=== PATIENT | female | born 1965 ===

== ENCOUNTER 2017-11-29 11:05 | Inpatient (IN) ==
--- NOTE | 2017-11-29 11:39 | ED ---
HPI General Chief Complaint: Psychiatric Symptoms Stated Complaint: Psych/OBPD Time Seen by Provider: 11/29/17 17:07 Source: patient and police Mode of arrival: ambulatory Limitations: no limitations History of Present Illness HPI Narrative: 52-year-old white female with a history of PTSD, depression, anxiety homelessness presents emergency department under [place] act by PD. The patient was just seen in the ER earlier this past week for PTSD and anxiety. She was offered a prescription for Vistaril. She states that she is disabled. Her car is disabled in parking lot at [facility]. The patient has been trespassed from [employer]. Patient has contacted police advising them that she has been feeling fused as well as feeling suicidal. She does not have any current plan on self-harm. No homicidal ideation. Patient also complains of pain in both feet from blisters which she has obtained from walking in sandals. She denies any fever chills. No chest pain or shortness of breath. No nausea vomiting. No abdominal pain or urinary symptoms. Symptoms are moderate. No alleviating factors. Exacerbated by her homeless state. Related Data Home Medications Medication Instructions Recorded Confirmed No Known Home Medications 11/29/17 11/29/17 Allergies Allergy/AdvReac Type Severity Reaction Status Date / Time aspirin Allergy Hives Verified 11/25/17 12:46 propoxyphene Allergy Itching Verified 11/25/17 12:46 [From Rosa] Review of Systems ROS Unobtainable All other systems reviewed negative except as stated in HPI PMFSH Medical History Medical History H/O: hysterectomy (Acute) Fibromyalgia (Acute) PTSD (post-traumatic stress disorder) (Acute) Surgical History Surgical History Hx of section (Acute) Social History Social History Substance History: No History of Abuse Smoking Status: Current every day smoker Tobacco Type: Cigarettes How Often Do You Have a Drink Containing Alcohol: Never Recent Travel in USA within the Last 8 Weeks: No Recent Out of Country Travel within the Last 8 Weeks: No Exam Narrative Exam Narrative: GENERAL: Well-nourished, well-developed patient. SKIN: Warm and dry. HEAD: Normocephalic and atraumatic. EYES: No scleral icterus. No injection or drainage. ENT: No nasal drainage noted. Mucous membranes pink. Airway patent. NECK: Supple, trachea midline. Moves head freely without obvious discomfort. CARDIOVASCULAR: Regular rate and rhythm without murmurs, gallops, or rubs. RESPIRATORY: Breath sounds equal bilaterally. No accessory muscle use. GASTROINTESTINAL: Abdomen soft, non-tender, nondistended. EXTREMITIES: No cyanosis or edema. Patient has superficial blisters to the interdigital spaces of the great toe and second toe both feet as well as the plantar surface. No signs of any wound infection. BACK: Nontender without obvious deformity. No CVA tenderness. NEURO: Patient is alert and oriented. no sensorimotor deficits. Nonfocal. Normal speech. PSYCH: No delusions. No auditory or visual hallucinations. Course Initial Documented Vital Signs Temperature 98.8 F 11/29/17 11:18 Pulse Rate 80 11/29/17 11:18 Respiratory Rate 16 11/29/17 11:18 Blood Pressure 115/63 11/29/17 11:18 Pulse Oximetry 97 11/29/17 11:18 Last Documented Vital Signs Temperature 97.9 F 11/30/17 06:00 Pulse Rate 58 L 11/30/17 06:00 Respiratory Rate 16 11/30/17 06:00 Blood Pressure 109/55 L 11/30/17 06:00 Pulse Oximetry 97 11/30/17 06:00 Medical Decision Making MDM Narrative Medical decision making narrative: Routine laboratory tests sent for analysis for medical clearance. Patient has been medically cleared. Differential Diagnosis Differential Diagnosis: MDM: High Differential diagnoses: Schizophrenia, schizoaffective disorder, bipolar, anxiety, depression, adjustment reaction, mood disorder NOS, ODD, depressive disorder NOS, dementia, dementia with agitation, psychosis NOS, substance induced mood disorder, DMDD, Asperger syndrome, infection,electrolyte abnormality, malingering. Mental health screening discussed with the patient. Psychiatric screen ordered. Lab Data Result diagrams: 11/29/17 11:28 11/30/17 08:50 Lab Results 11/29/17 11/29/17 11/29/17 Range/Units 11:28 11:28 12:15 WBC 8.1 (4.0-11.0) th/mm3 RBC 4.61 (4.00-5.30) mil/mm3 Hgb 14.4 (11.6-15.3) gm/dL Hct 42.7 (35.0-46.0) % MCV 92.6 (80.0-100.0) fL MCH 31.3 (27.0-34.0) pg MCHC 33.8 (32.0-36.0) % RDW 13.1 (11.6-17.2) % Plt Count 207 (150-450) th/mm3 MPV 8.2 (7.0-11.0) fL Neut % (Auto) 60.7 (16.0-70.0) % Lymph % (Auto) 30.6 (9.0-44.0) % [place] % (Auto) 7.0 (0.0-8.0) % Eos % (Auto) 1.1 (0.0-4.0) % Baso % (Auto) 0.6 (0.0-2.0) % Neut # (Auto) 4.9 (1.8-7.7) th/mm3 Lymph # (Auto) 2.5 (1.0-4.8) th/mm3 [place] # (Auto) 0.6 (0.0-0.9) th/mm3 Eos # (Auto) 0.1 (0.0-0.4) th/mm3 Baso # (Auto) 0.0 (0.0-0.2) th/mm3 WBC Differential . Differential Comment Auto diff final Sodium 143 (136-145) meq/L Potassium 3.5 (3.5-5.1) meq/L Chloride 109 H (98-107) meq/L Carbon Dioxide 27.9 (21.0-32.0) meq/L Anion Gap 6 (5-15) meq/L BUN 6 L (7-18) mg/dL Creatinine 0.92 (0.50-1.00) mg/dL Estimated GFR 64 L (>89) mL/min Random Glucose 123 H (74-106) mg/dL Hemoglobin A1c (4.3-6.0) % Uric Acid (2.6-6.0) mg/dl Calcium 8.6 (8.5-10.1) mg/dL Total Bilirubin 0.5 (0.2-1.0) mg/dL AST 21 (15-37) U/L ALT 21 (10-53) U/L Alkaline Phosphatase 93 (45-117) U/L Total Protein 6.9 (6.4-8.2) g/dL Albumin 3.6 (3.4-5.0) g/dL Triglycerides (42-150) mg/dL Cholesterol (120-200) mg/dL LDL Cholesterol, Calc (0-99) mg/dL HDL Cholesterol (40.0-60.0) mg/dL Cholesterol/HDL Ratio Ratio TSH 1.600 (0.358-3.740) uIU/mL Urine Opiates Screen Neg (Neg) Ur Barbiturates Screen Neg (Neg) Ur Amphetamines Screen Neg (Neg) U Benzodiazepines Scrn Neg (Neg) Urine Cocaine Screen Neg (Neg) U Cannabinoids Screen Neg (Neg) Serum Alcohol Less than 3 (0-5) mg/dL 11/30/17 11/30/17 11/30/17 Range/Units 08:50 08:50 08:50 WBC (4.0-11.0) th/mm3 RBC (4.00-5.30) mil/mm3 Hgb (11.6-15.3) gm/dL Hct (35.0-46.0) % MCV (80.0-100.0) fL MCH (27.0-34.0) pg MCHC (32.0-36.0) % RDW (11.6-17.2) % Plt Count (150-450) th/mm3 MPV (7.0-11.0) fL Neut % (Auto) (16.0-70.0) % Lymph % (Auto) (9.0-44.0) % [place] % (Auto) (0.0-8.0) % Eos % (Auto) (0.0-4.0) % Baso % (Auto) (0.0-2.0) % Neut # (Auto) (1.8-7.7) th/mm3 Lymph # (Auto) (1.0-4.8) th/mm3 [place] # (Auto) (0.0-0.9) th/mm3 Eos # (Auto) (0.0-0.4) th/mm3 Baso # (Auto) (0.0-0.2) th/mm3 WBC Differential Differential Comment Sodium 143 (136-145) meq/L Potassium 3.7 (3.5-5.1) meq/L Chloride 110 H (98-107) meq/L Carbon Dioxide 27.2 (21.0-32.0) meq/L Anion Gap 6 (5-15) meq/L BUN 8 (7-18) mg/dL Creatinine 0.66 (0.50-1.00) mg/dL Estimated GFR Greater than 89 (>89) mL/min Random Glucose 87 (74-106) mg/dL Hemoglobin A1c 5.2 (4.3-6.0) % Uric Acid 4.2 (2.6-6.0) mg/dl Calcium 8.4 L (8.5-10.1) mg/dL Total Bilirubin (0.2-1.0) mg/dL AST (15-37) U/L ALT (10-53) U/L Alkaline Phosphatase (45-117) U/L Total Protein (6.4-8.2) g/dL Albumin (3.4-5.0) g/dL Triglycerides 81 (42-150) mg/dL Cholesterol 146 (120-200) mg/dL LDL Cholesterol, Calc 87 (0-99) mg/dL HDL Cholesterol 43.2 (40.0-60.0) mg/dL Cholesterol/HDL Ratio 3.37 Ratio TSH (0.358-3.740) uIU/mL Urine Opiates Screen (Neg) Ur Barbiturates Screen (Neg) Ur Amphetamines Screen (Neg) U Benzodiazepines Scrn (Neg) Urine Cocaine Screen (Neg) U Cannabinoids Screen (Neg) Serum Alcohol (0-5) mg/dL Imaging Data Radiologist's impression: Foot X-Ray 11/30/17 00:00 CONCLUSION: Unremarkable study. Venous Doppler Study 11/30/17 00:00 CONCLUSION: 1. The study is negative for bilateral lower extremity deep venous thrombosis. Discharge Plan Discharge Disposition Patient Disposition: Discharge Home Discharge Order Discharge Orders: Discharge Order (Routine); Ordered 11/30/17 Ordered By: Julio Burks Discharge Details Diagnosis: Chronic schizophrenia, Medical clearance for psychiatric admission Physicians Team ED Provider: Geni Jung ED Midlevel Provider: Julio Burks Primary Care Provider: Primary Care Yamilethi,No Attending Provider: Kiran Sifuentes Other Providers: Kiran Sifuentes ; Felix Hooper Discharge Interventions Interventions: ED Discharge Assessment Last Done: 11/29/17 20:55 Vital Signs Last Done: 11/29/17 17:39 Status ED Status: Left Department Discharge Information Discharge Date/Time: 11/29/17 20:58
[2017-11-29 11:53] LABS: Baso % (Auto) 0.6 % (0.0-2.0); Eos # (Auto) 0.1 th/mm3 (0.0-0.4); Eos % (Auto) 1.1 % (0.0-4.0); Hematocrit 42.7 % (35.0-46.0); Hemoglobin 14.4 gm/dL (11.6-15.3); Lymph # (Auto) 2.5 th/mm3 (1.0-4.8); Lymph % (Auto) 30.6 % (9.0-44.0); Mean Corpuscular HGB Conc 33.8 % (32.0-36.0); Mean Corpuscular Hemoglobin 31.3 pg (27.0-34.0); Mean Corpuscular Volume 92.6 fL (80.0-100.0); Mean Platelet Volume 8.2 fL (7.0-11.0); Mono # (Auto) 0.6 th/mm3 (0.0-0.9); Neut # (Auto) 4.9 th/mm3 (1.8-7.7); Neut % (Auto) 60.7 % (16.0-70.0); Platelet Count 207 th/mm3 (150-450); Red Blood Count 4.61 mil/mm3 (4.00-5.30); Red Cell Distribution Width 13.1 % (11.6-17.2); White Blood Count 8.1 th/mm3 (4.0-11.0)
[2017-11-29 12:13] LABS: Alanine Aminotransferase 21 U/L (10-53); Albumin 3.6 g/dL (3.4-5.0); Anion Gap 6 meq/L (5-15); Aspartate Aminotransferase 21 U/L (15-37); Blood Urea Nitrogen 6 mg/dL (7-18); Calcium 8.6 mg/dL (8.5-10.1); Carbon Dioxide 27.9 meq/L (21.0-32.0); Chloride 109 meq/L (98-107); Glomerular Filtration Rate 64 mL/min (>89); Glucose,Random 123 mg/dL (74-106); Potassium 3.5 meq/L (3.5-5.1); Sodium 143 meq/L (136-145)
[2017-11-29 12:23] LABS: Alkaline Phosphatase 93 U/L (45-117); Total Protein 6.9 g/dL (6.4-8.2)
[2017-11-29 13:23] LABS: Amphetamine Screen,Urine Neg (Neg); Barbiturate Screen,Urine Neg (Neg); Cannabinoid Screen,Urine Neg (Neg); Cocaine Screen,Urine Neg (Neg); Opiate Screen,Urine Neg (Neg)
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
[2017-11-29] MEDS ORDERED: Bisacodyl 10 MG Supp RECTAL PRN (18:00)
[2017-11-29] MEDS ORDERED: Aluminum/Magnesium/Simethacone Susp 30 ML UDC PO PRN (18:00)
--- NOTE | 2017-11-30 08:50 | US ---
EXAM DATE: 11/30/2017 8:48 AM EDT AGE/SEX: 52 years / Female INDICATIONS: Bilateral leg swelling. CLINICAL DATA: This is the patient's initial encounter. Patient reports that signs and symptoms have been present for 2 days and indicates a pain score of 5/10. MEDICAL/SURGICAL HISTORY: . Fibromyalgia. PTSD. section. Hysterectomy. COMPARISON: No prior exams available for comparison. TECHNIQUE: Venous ultrasound of both lower extremities was performed from the inguinal ligament to t he proximal calf. Real-time, color Doppler and spectral tracing, compression and augmentation techni ques were used. FINDINGS: Right Leg: Normal compression of the deep venous system from the inguinal region to the proximal joao f. No echogenic clot is seen. Normal response of the venous system to augmentation and respiration. Left Leg: Normal compression of the deep venous system from the inguinal region to the proximal calf . No echogenic clot is seen. Normal response of the venous system to augmentation and respiration. Other: None. CONCLUSION: 1. The study is negative for bilateral lower extremity deep venous thrombosis. Electronically signed by: Taina Oliver MD 11/30/2017 8:49 AM EDT
--- NOTE | 2017-11-30 09:19 | XR ---
EXAM DATE: 11/30/2017 9:07 AM EDT AGE/SEX: 52 years / Female INDICATIONS: Pain on calcaneus and tissue between 1st and 2nd digits from walking with flip flops. CLINICAL DATA: This is the patient's initial encounter. Patient reports that signs and symptoms have been present for 1 week and indicates a pain score of 8/10. MEDICAL/SURGICAL HISTORY: . Fibromyalgia. PTSD. . section. Hysterectomy. COMPARISON: No prior exams available for comparison. FINDINGS: No definite fractures, or dislocations are identified. No definite lytic or sclerotic les ion is seen. The joint spaces are well maintained. There is irregularity of the first distal phalan x chronic in nature. CONCLUSION: Unremarkable study. Electronically signed by: Taina Oliver MD 11/30/2017 9:18 AM EDT
[2017-11-30 10:08] LABS: Anion Gap 6 meq/L (5-15); Blood Urea Nitrogen 8 mg/dL (7-18); Calcium 8.4 mg/dL (8.5-10.1); Carbon Dioxide 27.2 meq/L (21.0-32.0); Chloride 110 meq/L (98-107); Cholesterol 146 mg/dL (120-200); Glomerular Filtration Rate Greater Than 89 mL/min (>89); Glucose,Random 87 mg/dL (74-106); Potassium 3.7 meq/L (3.5-5.1); Sodium 143 meq/L (136-145); Triglycerides 81 mg/dL (42-150)
[2017-11-30 10:10] LABS: Chol/HDL Ratio 3.37 Ratio; HDL Cholesterol 43.2 mg/dL (40.0-60.0); LDL Cholesterol,Calculated 87 mg/dL (0-99)
[2017-11-30 10:29] LABS: Hemoglobin A1c 5.2 % (4.3-6.0)
--- NOTE | 2017-11-30 13:28 | P.HPPSY ---
Provisional Diagnosis Admission Date: November 29, 2017 18:02 [place] I.: Unspecified psychosis, R/O bipolar disorder, manic episode, acute exacerbation [place] II.: Deferred [place] III.: Fibromyalgia Competence Certification of Person's Competence To Provide Express and Informed Consent I have personally examined Regina Edmonds, a person being served at [facility] on, November 30, 2017 1309. Express and informed consent means consent voluntarily given in writing, by a competent person, after sufficient explanation and disclosure of the subject matter involved to enable the person to make a knowing and willful decision without any element of force, fraud, deceit, duress, or other form of constraint or coercion. This person is 18 years of age or older, is not now known to be incompetent to consent to treatment with a guardian advocate, and does not have a health care surrogate or proxy currently making medical treatment decisions. I have found this person to be one of the following: [] Competent to provide express and informed consent, as defined above, for voluntary admission to this facility and is competent to provide express and informed consent for treatment. He/she has the consistent capacity to make well reasoned, willful, and knowing decisions concerning his or her medical or mental health treatment. The person fully and consistently understands the purpose of the admission for examination/placement and is fully capable of personally exercising all rights assured under [place] [] Incompetent to provide express and informed consent to voluntary admission, and this is incompetent to provide express and informed consent to treatment. The person must be transferred to involuntary status and a petition for a guardian advocate filed with the Circuit Court. [x] Refusing to provide express and informed consent to voluntary admission but is competent to provide express and informed consent for treatment. The person must be discharged or transferred to involuntary status. Form shall be completed within 24 hours of a person's arrival at the receiving facility and filed in the clinical record of each person: 1. Admitted on a voluntary basis 2. Permitted to provide express and informed consent to his/her own treatment 3. Allowed to transfer from involuntary to voluntary status 4. Prior to permitting a person to consent to his or her own treatment after having been previously found incompetent to consent to treatment. History of Present Illness Capacity: Has capacity History of Present Illness: The patient is a 52-year-old woman, domiciled in [place], here in [facility] "on vacation", single, she is mother of 2 kids, unemployed, supported by [facility], with a psychiatric history of PTSD, depression, anxiety, bipolar disorder, multiple psychiatric admissions, noncompliant with medications, she denies the use of illegal drugs or alcohol, medical history of fibromyalgia, who presented to emergency department under [place] act by PD. The BA alleges that they responded to a call " for a female that did not know who she was, why she was there or where she came from. She reported she had been walking around for 24 hours and that she had come down from [place] after the of her mother. She then stated that she would blow her brains out." The patient was just seen in the ER earlier this past week for PTSD and anxiety and requesting a medication refill. She reports to ED provider that her car is disabled in parking lot at [facility]. The patient has been trespassed from [facility] after she had been staying in their parking lot x 3 days. Current toxicology is negative. EMR reviewed. ollateral information from his daughter Eri at [phone] was obtained by Yoon Perez), She informs me that the patient has an extensive psychiatric history including multiple hospitalizations.Has been prescribed Geodon, Seroquel inthe past but that she stopped taking medications approximately one year ago. She last saw her in October. She was recently contacted by [employer] in [place] who were looking for her " to commit her to the hospital because someone reported she was seen involved in some strange activity with an animal. The daughter did not want to divulge what this was. She also tells me that the patient got rid of all her possessions in her apartment before disappearing. As per Miss Tse assessment yesterday in the ER. Patient is seen. She is sunburned and complaining of pain in her feet from walking. her speech is pressured. Mood is irritable. She tells me she left her apartment because she believed that there were cameras in her apartment and when she called the police they did not help her. She then embarked on a random, unplanned trip to several [facility] in [place]. She then decided to drive to [place] to stay with a brother but somehow ended up stranded in the [employer] parking lot. She continues to endorse thoughts of self harm if she is discharged. Her thoughts are somewhat tangential and circumstantial. Does not appear to be responding to internal stimuli. Poor frustration tolerance noted.She becomes easily agitated and terminates the interview. Today on my psychiatric evaluation I find a patient that is irritable, oppositional, quite reluctant to cooperate with psychiatric information. With redirection the patient was able to open up a little bit. The patient is quite disheveled, malodorous, with clear evidence of self neglecting behavior. She initially started complaining of pain several sunburns injuries over her back. Also complains of pain in both food, in the left leg she has a prominent about 2x2 abscess was surrounded area of inflammation. She says that she can barely walk. The patient tried to explain what were the circumstances that brought her yesterday to the ER. She initially says that she was trying to fix her car in the parking lot [employer], she says that she did not have any gas was trying to ask for help when she became aware that the police was behind her and she was brought to the hospital. She also states that some point she was in a gas station," and the people in the gas station called the police to bring him here " she says that she has being in the [facility] area complication, but at the same time she is unable to tell me where she is being staying and also for how long she has been here. During the evaluation I noted that the patient is quite contradictory, disorganized, tangential, with ruslan loosening of associations and even pressure. The patient seems to be internally preoccupied and also paranoid. At the beginning she says that she does not have any psychiatric history, but when I confronted her with her daughter's information, the patient was able to tell me that she does have bipolar disorder she has not been taking her medications. She at the end agree with starting Seroquel - Inpatient Certification I certify that the inpatient services were ordered in accordance with Medicare regulations governing the order. This includes certification that hospital inpatient services are reasonable and necessary and in the case of services not specified as inpatient-only under 42 CFR 419.22(n), that they are appropriately provided as inpatient services in accordance to with the 2-midnight benchmark under 43 CFR 412.3(e) I certify that inpatient psychiatric hospital services are medically necessary. Evaluation and treatment and/or diagnostic testing are expected to improve the patient's condition. The patient needs on a daily basis, active treatment furnished directly by or requiring the supervision of inpatient psychiatric facility personnel. Estimated Total Length of Stay (Days): 7 Plans for Post Hospital Care: Not yet determined Review of Systems Constitutional: Reports fatigue, Reports weight loss, Denies anorexia, Denies body ache(s), Denies chills, Denies daytime sleepiness, Denies excessive sweating, Denies fever(s), Denies headache(s), Denies increased appetite, Denies lack of energy, Denies malaise, Denies night sweats, Denies weakness, Denies weight gain, Denies other Eyes: Denies blind spots, Denies blurry vision, Denies bulging eyes, Denies change in vision, Denies double vision, Denies discharge, Denies dry eyes, Denies floaters, Denies irritation, Denies itchy eyes, Denies loss of vision, Denies pain, Denies requires corrective lenses, Denies sensitivity to light, Denies other Ears, Nose, Mouth, and Throat: Denies abnormal hearing, Denies bleeding gums, Denies bad breath, Denies change in voice, Denies dental pain, Denies difficulty swallowing, Denies dizziness, Denies dry mouth, Denies ear discharge , Denies ear pain, Denies facial pain, Denies headache(s), Denies hearing loss, Denies hoarseness, Denies lip swelling, Denies nosebleed, Denies mouth lesions, Denies mouth pain, Denies nasal congestion, Denies nasal discharge, Denies nasal obstruction, Denies nasal trauma, Denies neck lump, Denies neck pain, Denies nose pain, Denies pain with swallowing, Denies poor balance, Denies post nasal drip, Denies ringing in the ears, Denies sinus pain, Denies sinus pressure , Denies sore throat, Denies throat swelling, Denies tongue swelling, Denies other Cardiovascular: Denies chest pain, Denies chest pain at rest, Denies chest pain with activity, Denies excessive sweating, Denies fainting, Denies fast heart rate, Denies foot swelling, Denies generalized swelling, Denies irregular heart rhythm, Denies leg pain with activity, Denies leg sores, Denies leg swelling, Denies lightheadedness, Denies radiating jaw, neck or arm pain, Denies rapid, pounding, or irregular heartbeat, Denies shortness of breath, Denies shortness of breath with activity, Denies shortness of breath when lying down, Denies shortness of breath causing sudden awakening, Denies slow heart rate, Denies other Respiratory: Denies change in phlegm color, Denies chest congestion, Denies cough, Denies coughing up blood, Denies excessive phlegm production, Denies pain on inspiration, Denies pain with cough, Denies shortness of breath, Denies shortness of breath with activity, Denies snoring, Denies stridor, Denies wheezing, Denies other Gastrointestinal: Denies abdominal pain, Denies belching, Denies black, tarry stools, Denies bloating, Denies bright, red blood in stools, Denies change in bowel habits, Denies constant urge to pass stool, Denies change in stools, Denies coffee ground vomit, Denies constipation, Denies cramping, Denies difficulty swallowing, Denies excessive passing of gas, Denies feeling full early, Denies heartburn, Denies incontinent of stools, Denies loose stools, Denies nausea, Denies pain with swallowing, Denies vomiting, Denies vomiting blood, Denies other Genitourinary: Denies abnormal periods, Denies abnormal vaginal bleeding, Denies absent period, Denies bleeding between periods, Denies blood in urine, Denies difficulty starting urination, Denies difficulty urinating, Denies dribbling after urination, Denies frequent nighttime urination, Denies genital itching, Denies genital lesions, Denies heavy periods, Denies hot flashes, Denies light periods, Denies nipple discharge, Denies painful intercourse, Denies painful periods, Denies painful urination, Denies pelvic pain, Denies prolapse symptoms, Denies sexual problems, Denies side pain, Denies urinary incontinence, Denies urinary urgency, Denies vaginal discharge, Denies vaginal dryness, Denies vaginal odor, Denies vaginal itching, Denies other Musculoskeletal: Denies abnormal walking, Denies back pain, Denies body aches, Denies decreased muscle mass, Denies deformity, Denies joint pain, Denies joint swelling, Denies limited joint movement, Denies loss of height, Denies muscle cramps, Denies muscle weakness, Denies neck pain, Denies numbness, Denies radiating pain into limb, Denies stiffness, Denies tingling, Denies other Skin/Breast: Reports change in skin color, Reports changing lesions, Reports dry skin, Reports redness, Reports sores, Denies acne, Denies bleeding lesions, Denies boil, Denies breast swelling, Denies breast skin changes, Denies breast pain, Denies breast lump, Denies change in breast shape, Denies change in hair, Denies excessive hair growth, Denies hair loss, Denies itching, Denies lesions, Denies nail changes, Denies new lesions, Denies nipple discharge, Denies non- healing lesions, Denies sensitivity to light, Denies rash, Denies skin pain, Denies skin ulcer, Denies stretch costello, Denies unusual bruising, Denies wounds , Denies yellowing of the skin, Denies other Neurologic: Denies abnormal hearing, Denies abnormal movements, Denies abnormal speech, Denies abnormal walking, Denies behavioral changes, Denies burning sensations, Denies confusion, Denies dizziness, Denies fainting, Denies frequent falls, Denies headache(s), Denies lack of coordination, Denies localized weakness, Denies loss of vision, Denies memory loss, Denies numbness, Denies other visual disturbances, Denies radiating pain, Denies restless legs, Denies convulsions, Denies seizure-like activity, Denies sensory deficit, Denies tingling, Denies tingling/numbness/burning sensations, Denies tremor(s), Denies unsteadiness, Denies weakness, Denies other Psychiatric: Reports anxiety, Reports difficulty concentrating, Reports irritability, Reports other (persecutory delusions ) [facility] - History History Provided By: Patient, Family Member - Medical History Medical History: Medical History (Last Reviewed 11/29/17 @ 11:37 by RADHA Cooley) H/O: hysterectomy (Acute) Fibromyalgia (Acute) PTSD (post-traumatic stress disorder) (Acute) - Surgical History Surgical History: Surgical History (Last Reviewed 11/29/17 @ 11:37 by RADHA Cooley) Hx of section (Acute) - Tobacco History Tobacco Use In Past 30 Days: Yes Smoking Status: Current every day smoker Tobacco Type: Cigarettes - Alcohol History How Often Do You Have a Drink Containing Alcohol: Never - Substance Use History Substance History: No History of Abuse - Travel History Recent Travel in the [place] Within the Last 8 Weeks: No Recent Travel Out of the Country Within the Last 8 Weeks: No - Immunization History Tetanus Immunization: Unsure Hx Influenza Vaccine This Season: No Medications and Allergies Active Medications: Active Medications Al Hydrox/Mg Hydrox/Simethicone (Mag-Al Plus Susp Liq) 30 ml PO Q6H PRN PRN Reason: DYSPEPSIA Al Hydroxide/Mg Hydroxide (Milk Of Magnesia Liq) 30 ml PO Q12H PRN PRN Reason: Mild Constipation Bisacodyl (Dulcolax Supp) 10 mg RECTAL DAILY PRN PRN Reason: SEVERE CONSITIPATION Diphenhydramine HCl (Benadryl) 50 mg PO HS PRN PRN Reason: INSOMNIA Lactulose (Lactulose Liq) 30 ml PO DAILY PRN PRN Reason: SEVERE CONSITIPATION Lorazepam (Ativan) 1 mg PO Q6H PRN PRN Reason: MODERATE TO SEVERE ANXIETY Padimate O (Chapstick) 1 applicatio TOPICAL Q4H ERIKA Quetiapine Fumarate (Seroquel) 50 mg PO DAILY ERIKA Sennosides (Senokot) 17.2 mg PO Q12H PRN PRN Reason: Moderate Constipation Ziprasidone (Geodon Inj) 10 mg IM Q12H PRN PRN Reason: SEVERE AGITATION Allergies Allergy/AdvReac Type Severity Reaction Status Date / Time aspirin Allergy Hives Verified 11/25/17 12:46 propoxyphene Allergy Itching Verified 11/25/17 12:46 [From Darmary alicet-N] Home Medications Medication Instructions Recorded Confirmed Type No Known Home Medications 11/29/17 11/29/17 History Results - Labs CBC & Chem 7: 11/29/17 11:28 11/30/17 08:50 Labs: Laboratory Results - last 24 hr 11/29/17 11/30/17 11/30/17 12:15 08:50 08:50 Sodium 143 Potassium 3.7 Chloride 110 H Carbon Dioxide 27.2 Anion Gap 6 BUN 8 Creatinine 0.66 Estimated GFR Greater than 89 Random Glucose 87 Hemoglobin A1c 5.2 Calcium 8.4 L Triglycerides 81 Cholesterol 146 LDL Cholesterol, Calc 87 HDL Cholesterol 43.2 Cholesterol/HDL Ratio 3.37 Urine Opiates Screen Neg Ur Barbiturates Screen Neg Ur Amphetamines Screen Neg U Benzodiazepines Scrn Neg Urine Cocaine Screen Neg U Cannabinoids Screen Neg - Imaging Impressions Foot X-Ray 11/30/17 00:00 CONCLUSION: Unremarkable study. Venous Doppler Study 11/30/17 00:00 CONCLUSION: 1. The study is negative for bilateral lower extremity deep venous thrombosis. Exam Vital signs: Vital Signs 11/29/17 14:19 11/29/17 17:39 11/29/17 21:00 Temperature 98.1 F 98.1 F 98.2 F Pulse Rate 65 65 65 Respiratory Rate 16 18 18 Blood Pressure 112/67 112/57 L 102/59 L Pulse Oximetry 100 100 96 11/30/17 06:00 Temperature 97.9 F Pulse Rate 58 L Respiratory Rate 16 Blood Pressure 109/55 L Pulse Oximetry 97 Intake & Output 11/29/17 11/30/17 11/30/17 18:59 06:59 18:59 Weight 63.503 kg 63.503 kg Other: Weight On Admission 63.503 kg Mental Status Examination Appearance: Disheveled, Other (sunburned) Consciousness: Alert Orientation: x4 Motor Activity: Other (walks with a limp) Speech: Pressured Language: Adequate Fund of Knowledge: Adequate Attention and Concentration: Inadequate Memory: Unremarkable Mood: Angry, Sad, Anxious, Irritable Affect: Labile Thought Process & Associations: Tangential Thought Content: Racing thoughts Hallucination Type: None Delusion Type: None Suicidal Ideation: Yes (In context of current homelessness) Suicidal Plan: Yes (to blow her brains out) Suicidal Intention: No Homicidal Ideation: No Homicidal Plan: No Homicidal Intention: No Insight: Poor Judgment: Poor Assessment and Plan - Assessment (1) PTSD (post-traumatic stress disorder) Code(s): F43.10 - Post-traumatic stress disorder, unspecified Status: Acute (2) Bipolar disorder Code(s): F31.9 - Bipolar disorder, unspecified Status: Acute - Plan Plan: Estimated LOS: [] days On psychiatric evaluation today the patient presents quite disheveled, with clear signs of self neglecting behavior, internally preoccupied, paranoid, with prominent loosening of associations, pressured speech, disorganized speech, contradictory statements that suggest decompensation of a major psychiatric illness. The patient has a psychiatric history of bipolar disorder, PTSD, psychiatric hospitalizations, suicide attempts, and she has not been taking her psychotropics. The patient has an increase risk of danger to self and others given her level of psychosis. She will be admitted in psychiatry for stabilization and safety. I will start Seroquel 50 mg twice daily for psychosis. Patient might benefit of a mood stabilizer. Brief supportive psychotherapy provided. I will consult psychiatry for second opinion, consult hospitalist to address the lateral foot cellulitis and also back skin collado. Justification for Continued Inpatient Stay: Continue psychiatric admission for stabilization.
--- NOTE | 2017-11-30 14:16 | ECG ---
Date Performed: 11/30/2017 Time Performed: 10:08:56 PTAGE: 52 years EKG: Sinus rhythm NORMAL ECG NO PREVIOUS TRACING DOCTOR: José Manuel Rosenberg Interpretating Date/Time 11/30/2017 14:15:10
[2017-11-30] MEDS: QUEtiapine 25 MG Tablet PO SCH (14:18)
--- NOTE | 2017-11-30 15:56 | P.CON ---
History of Present Illness Primary Care Provider: No Primary Care Physician History of Present Illness: 52-year-old white female admitted with Carrillo act. Chart reviewed. In summary patient was admitted to psychiatry after declaring suicidal thoughts at [facility]. Patient says she has been having left foot pain for the past few days. Reports pain at the ball of her foot as well as the heel. Denies striking any objects causing any puncture injury. No fevers are noted in the chart., Says she has been walking in sandals for a while. Denies walking barefoot recently. Nursing however reports that the patient keeps changing her story and that there are reports of her walking barefoot. She has had bilateral venous Dopplers done that are negative for any DVT. Left foot x-ray is negative. Review of Systems All other systems reviewed negative except as stated in HPI [facility] - History History Provided By: Patient, Family Member - Medical History Medical History: Medical History (Last Reviewed 11/29/17 @ 11:37 by RADHA Cooley) H/O: hysterectomy (Acute) Fibromyalgia (Acute) PTSD (post-traumatic stress disorder) (Acute) - Surgical History Surgical History: Surgical History (Last Reviewed 11/29/17 @ 11:37 by RADHA Cooley) Hx of section (Acute) - Tobacco History Tobacco Use In Past 30 Days: Yes Smoking Status: Current every day smoker Tobacco Type: Cigarettes - Alcohol History How Often Do You Have a Drink Containing Alcohol: Never - Substance Use History Substance History: No History of Abuse - Travel History Recent Travel in the USA Within the Last 8 Weeks: No Recent Travel Out of the Country Within the Last 8 Weeks: No - Immunization History Tetanus Immunization: Unsure Hx Influenza Vaccine This Season: No Medications and Allergies Active Medications: Active Medications Al Hydrox/Mg Hydrox/Simethicone (Mag-Al Plus Susp Liq) 30 ml PO Q6H PRN PRN Reason: DYSPEPSIA Al Hydroxide/Mg Hydroxide (Milk Of Magnesia Liq) 30 ml PO Q12H PRN PRN Reason: Mild Constipation Bisacodyl (Dulcolax Supp) 10 mg RECTAL DAILY PRN PRN Reason: SEVERE CONSITIPATION Calamine (Calamine Lotion) 1 applicatio TOPICAL Q6H PRN PRN Reason: itching or pain over areas Diphenhydramine HCl (Benadryl) 50 mg PO HS PRN PRN Reason: INSOMNIA Lactulose (Lactulose Liq) 30 ml PO DAILY PRN PRN Reason: SEVERE CONSITIPATION Levofloxacin (Levaquin) 750 mg PO DAILY [facility] Lorazepam (Ativan) 1 mg PO Q6H PRN PRN Reason: MODERATE TO SEVERE ANXIETY Padimate O (Chapstick) 1 applicatio TOPICAL Q4H [facility] Last Admin: 11/30/17 14:18 Dose: 1 applicatio Quetiapine Fumarate (Seroquel) 50 mg PO DAILY [facility] Last Admin: 11/30/17 14:18 Dose: 50 mg Sennosides (Senokot) 17.2 mg PO Q12H PRN PRN Reason: Moderate Constipation Ziprasidone (Geodon Inj) 10 mg IM Q12H PRN PRN Reason: SEVERE AGITATION Allergies Allergy/AdvReac Type Severity Reaction Status Date / Time aspirin Allergy Hives Verified 11/25/17 12:46 propoxyphene Allergy Itching Verified 11/25/17 12:46 [From SuzyJacinda] Home Medications Medication Instructions Recorded Confirmed Type No Known Home Medications 11/29/17 11/29/17 History Physical Exam Vital signs: Vital Signs 11/29/17 17:39 11/29/17 21:00 11/30/17 06:00 Temperature 98.1 F 98.2 F 97.9 F Pulse Rate 65 65 58 L Respiratory Rate 18 18 16 Blood Pressure 112/57 L 102/59 L 109/55 L Pulse Oximetry 100 96 97 Intake & Output 11/29/17 11/30/17 11/30/17 18:59 06:59 18:59 Weight 63.503 kg 63.503 kg Other: Weight On Admission 63.503 kg Narrative: VS: afebrile GENERAL: Lying in bed, no acute distress SKIN: Has obvious sunburn on her back sparing a bra-line. No blistering noted on trunk. EYES: No scleral icterus. No injection or drainage. ENT: Normocephalic, atraumatic CARDIOVASCULAR: Regular rate and rhythm. no murmurs RESPIRATORY: No accessory muscle use. Clear to auscultation. Breath sounds equal bilaterally. GASTROINTESTINAL: Abdomen soft, non-tender, nondistended. Extremities: No clubbing, cyanosis, or edema. No obvious deformities. MUSCULOSKELETAL: grossly intact ROM of upper and lower extremities proximally; adequate muscle bulk and tone for age and habitus. L foot: Patient appears to be very apprehensive and jumpy when first touching anywhere on her foot but eventually relaxes. Mild abrasion injury in inter-webspace between first and second digits of left foot with what appears to be some callus formation on the plantar surface at a pressure point. When comparing her 2 great toes next each other there seems to be no difference in edema or discoloration. Actually does not even demonstrate pain upon ruslan toe flexion and extension. Has no pain on palpation of the dorsum of her foot. Says she has pain on medial aspect of her first metatarsal which is mildly reproducible to palpation. There's no ruslan MTP joint edema suggestive of gout any infectious process. May just have large callous underneath with a possible blister. No ruslan induration nor fluctuant area noted. Has cracked feet with callus formation at the heel as well. NEUROLOGICAL: Awake and alert. No obvious cranial nerve deficits. No facial droop nor slurred speech noted. PSYCHIATRIC: Appropriate mood and affect; insight and judgment normal. Assessment and Plan - Plan 52-year-old white female admitted with Carrillo act for suicidality. Hospitalist consulted for foot pain management. Foot pain -Suspect large callus formation with abrasion injury secondary to prolonged foot wear or lack of footwear; low suspicion of ruslan cellulitis or infection with no fluctuant palpable mass. Wound RN nurse for any further recs. Monitor for any expanding redness. no fever; no white count -will order uric acid level in case there's a gouty component although this is unlikely - NSAIDS as needed for pain - calamine lotion with lac-hydrin Sunburn -Appears to be mild with no blistering noted on her trunk; possible blister on her foot, will apply calamine lotion as needed Mood disorders -Psychiatry managing
[2017-11-30] MEDS: Naproxen 500 MG Tablet PO PRN (20:59)
[2017-11-30] MEDS: LORazepam 1 MG Tablet PO PRN (22:06)
[2017-11-30] MEDS: Lactic Acid (Ammonium Lactate) 12% Lotion 225 GM Bottle TOPICAL SCH (22:20)
[2017-12-01] MEDS ORDERED: levoFLOXacin 750 MG Tablet PO SCH (06:00)
[2017-12-01] MEDS: QUEtiapine 25 MG Tablet PO SCH (09:55)
[2017-12-01] MEDS: Naproxen 500 MG Tablet PO PRN ×2 (09:55→20:56)
--- NOTE | 2017-12-01 12:42 | P.PN ---
Subjective Interval history: Follow-up visit for left foot pain. Patient is seen and examined resting in bed with nurse at bedside, continues to complain of left foot pain more in her big toe. Patient reports that pain is increased and noted swelling and blister. Patient denies any fevers, chills, nausea, vomiting, cough, shortness of breath. Physical Exam Vital signs: Vital Signs 12/01/17 06:00 Temperature 36.8 C Pulse Rate 73 Respiratory Rate 16 Blood Pressure 133/56 L Pulse Oximetry 95 Intake & Output 11/30/17 12/01/17 12/01/17 18:59 06:59 18:59 Weight 63.503 kg Other: Weight On Admission 63.503 kg Narrative: GENERAL: Lying in bed, no acute distress SKIN: Sunburned with no blistering. Left foot with heel callus, plantar aspect beneath first toe with remnants of blister. First toe medial edge of nail bulla , white discoloration (?pus) towards tip. +tenderness/+warmth, +movement and sensation. CARDIOVASCULAR: Regular rate and rhythm. no murmurs RESPIRATORY: No accessory muscle use. Clear to auscultation. Breath sounds equal bilaterally. GASTROINTESTINAL: Abdomen soft, non-tender, nondistended. MUSCULOSKELETAL: grossly intact ROM of upper and lower extremities proximally. NEUROLOGICAL: Awake, alert, oriented. Moving all extremities spontaneously. Speech is clear. Results - Labs CBC & Chem 7: 11/29/17 11:28 11/30/17 08:50 Laboratory Results - last 24 hr 11/30/17 08:50 Uric Acid 4.2 Assessment and Plan - Plan 52-year-old white female admitted with Carrillo act for suicidality. Hospitalist consulted for foot pain management. Paronychia with abscess Foot pain -Callus formation due to prolonged foot wear or lack of footwear. -Increase pain, bulla with serous and white fluid possibly abscess. - Start Dicloxacillin P.O., consult podiatry for possible I&D, appreciate assistance. - NSAIDS as needed for pain - calamine lotion with lac-hydrin Sunburn -calamine lotion as needed Mood disorders -Psychiatry managing DVT prophylaxis-ambulation Discussed Condition With: Discussed with patient and RN
[2017-12-01] MEDS ORDERED: Bisacodyl 10 MG Supp RECTAL PRN (15:53)
[2017-12-01] MEDS ORDERED: Aluminum/Magnesium/Simethacone Susp 30 ML UDC PO PRN (15:53)
--- NOTE | 2017-12-01 16:02 | P.PNPSY ---
Subjective Remarks: Patient seen in her room with nurse Myranda counselor Katherine. Chart reviewed. Patient initially admitted by Dr. Steven Boyd. His H&P reviewed and agreed with I have done the initial psychiatric admission template orders. Patient angry irritable with me if she is quite manic and paranoid. She is markedly perseverative related to her living in her vehicle in a public parking lot and the interaction she is at with various police. She denies mental illness except to state that she has had "PTSD" due to various contact she has had a law enforcement. Patient has rapid pressured speech she is intense and angry markedly distractible. However patient has been compliant with his Seroquel at 50 mg daily. I will offer 100 mg twice daily. If she shows any resistance to compliance with medication we will consider requesting healthcare surrogate and guardian advocate. Patient does meet criteria for involuntary psychiatric hospitalization I do agree with Dr. Boyd her assigned first opinion petition supporting Gerardo act thus I will cosign second opinion petition supporting Gerardo act Review of Systems All other systems reviewed negative except as stated in HPI Mental Status Examination Appearance: Disheveled, Other (sunburned) Consciousness: Alert Orientation: x4 Motor Activity: Other (walks with a limp) Speech: Pressured, Rapid Language: Adequate Fund of Knowledge: Adequate Attention and Concentration: Inadequate Memory: Unremarkable Mood: Angry, Anxious, Irritable, Manic Affect: Other (Decreased range and intensity) Thought Process & Associations: Disorganized, Tangential Thought Content: Racing thoughts, Delusional Hallucination Type: None Delusion Type: Paranoid Suicidal Ideation: Yes (In context of current homelessness) Suicidal Plan: Yes (to blow her brains out) Suicidal Intention: No Homicidal Ideation: No Homicidal Plan: No Homicidal Intention: No Insight: Poor Judgment: Poor Assessment and Plan - Assessment (1) PTSD (post-traumatic stress disorder) Code(s): F43.10 - Post-traumatic stress disorder, unspecified Status: Acute (2) Bipolar disorder Code(s): F31.9 - Bipolar disorder, unspecified Status: Acute - Plan Plan: At this time patient meets criteria for involuntary psychiatric hospitalization I will cosign second opinion petition supporting Gerardo act. We will increase medication to 100 mg Seroquel twice daily. Patient remains quite manic paranoid and delusional. Justification for Continued Inpatient Stay: This time patient would decompensate a place to a lower level of care Discharge Planning: To be determined (2) Bipolar disorder Qualifiers: Active/Remission status: currently active Current bipolar episode type: manic Current episode severity: severe Psychotic features: with psychotic features Qualified Code(s): F31.2 - Bipolar disorder, current episode manic severe with psychotic features
[2017-12-01] MEDS: Lactic Acid (Ammonium Lactate) 12% Lotion 225 GM Bottle TOPICAL SCH ×2 (17:59→21:00)
[2017-12-01] MEDS: LORazepam 1 MG Tablet PO PRN (18:06)
[2017-12-01] MEDS: QUEtiapine 100 MG Tablet PO SCH (20:56)
--- NOTE | 2017-12-01 22:26 | P.CON ---
History of Present Illness Service: Foot and Ankle Surgery/Podiatry Consult date: 12/01/17 Primary Care Provider: No Primary Care Physician Chief Complaint: Painful left foot blister History of Present Illness: Podiatry consulted for this 52-year-old female who was admitted under Carrillo act. Patient was apparently having and declaring suicidal thoughts at [facility]. States she has been having pain to left foot for the past few days patient states she has been walking barefoot and in sandals and she states it possibly could have started then. She denies any nausea vomiting fevers or chills. Review of Systems Constitutional: Denies chills, Denies excessive sweating, Denies fatigue, Denies fever(s), Denies night sweats Eyes: Denies blind spots Ears, Nose, Mouth, and Throat: Denies abnormal hearing Cardiovascular: Denies chest pain Respiratory: Denies chest congestion, Denies cough Gastrointestinal: Denies abdominal pain PMFSH - History History Provided By: Patient, Family Member - Medical History Medical History: Medical History (Last Reviewed 12/01/17 @ 22:29 by Sarita Fabian DPM) H/O: hysterectomy (Acute) Fibromyalgia (Acute) PTSD (post-traumatic stress disorder) (Acute) - Surgical History Surgical History: Surgical History (Last Reviewed 12/01/17 @ 22:29 by Sarita Fabian DPM) Hx of section (Acute) - Tobacco History Tobacco Use In Past 30 Days: Yes Smoking Status: Current every day smoker Tobacco Type: Cigarettes - Alcohol History How Often Do You Have a Drink Containing Alcohol: Never - Substance Use History Substance History: No History of Abuse - Travel History Recent Travel in the [place] Within the Last 8 Weeks: No Recent Travel Out of the Country Within the Last 8 Weeks: No - Immunization History Tetanus Immunization: Unsure Hx Influenza Vaccine This Season: No Medications and Allergies Active Medications: Active Medications Al Hydrox/Mg Hydrox/Simethicone (Mag-Al Plus Susp Liq) 30 ml PO Q6H PRN PRN Reason: DYSPEPSIA Al Hydroxide/Mg Hydroxide (Milk Of Magnesia Liq) 30 ml PO Q12H PRN PRN Reason: Mild Constipation Bisacodyl (Dulcolax Supp) 10 mg RECTAL DAILY PRN PRN Reason: SEVERE CONSITIPATION Calamine (Calamine Lotion) 1 applicatio TOPICAL Q6H PRN PRN Reason: itching or pain over areas Last Admin: 11/30/17 20:43 Dose: 1 applicatio Dicloxacillin Sodium (Dynapen) 250 mg PO Q6HR [facility] Last Admin: 12/01/17 17:58 Dose: 250 mg Diphenhydramine HCl (Benadryl) 50 mg PO HS PRN PRN Reason: INSOMNIA Last Admin: 12/01/17 20:51 Dose: 50 mg Lactic Acid (Lac-Hydrin 12% Lotion) 1 applicatio TOPICAL BID [facility] Last Admin: 12/01/17 21:00 Dose: 1 applicatio Lactulose (Lactulose Liq) 30 ml PO DAILY PRN PRN Reason: SEVERE CONSITIPATION Lorazepam (Ativan) 1 mg PO Q6H PRN PRN Reason: MODERATE TO SEVERE ANXIETY Last Admin: 12/01/17 18:06 Dose: 1 mg Naproxen (Naprosyn) 500 mg PO BID PRN PRN Reason: Acute Pain Last Admin: 12/01/17 20:56 Dose: 500 mg Padimate O (Chapstick) 1 applicatio TOPICAL Q4H [facility] Last Admin: 12/01/17 16:45 Dose: Not Given Quetiapine Fumarate (Seroquel) 100 mg PO BID [facility] Last Admin: 12/01/17 20:56 Dose: 100 mg Senna/Docusate Sodium (Rosamaria-Colace) 1 tab PO BID [facility] Sennosides (Senokot) 17.2 mg PO Q12H PRN PRN Reason: Moderate Constipation Ziprasidone (Geodon Inj) 10 mg IM Q12H PRN PRN Reason: SEVERE AGITATION Allergies Allergy/AdvReac Type Severity Reaction Status Date / Time aspirin Allergy Hives Verified 11/25/17 12:46 propoxyphene Allergy Itching Verified 11/25/17 12:46 [From Rosa] Home Medications Medication Instructions Recorded Confirmed Type No Known Home Medications 11/29/17 11/29/17 History Physical Exam Vital signs: Vital Signs 12/01/17 06:00 12/01/17 17:40 Temperature 98.3 F 97.5 F L Pulse Rate 73 80 Respiratory Rate 16 Blood Pressure 133/56 L 126/72 Pulse Oximetry 95 97 Narrative: GENERAL: This is a well-nourished, well-developed patient, in no apparent distress. SKIN: Dorsal hallux ulceration, first interspace blister HEAD: Atraumatic. EYES: Pupils equal round and reactive. ENT: Airway patent. NECK: Trachea midline. RESPIRATORY: Nonlabored breathing. MUSCULOSKELETAL:. Negative Homans sign bilaterally. NEUROLOGICAL: Awake and alert. Normal speech. Lower extremity physical exam: Vascular: Dorsalis pedis 1/4, posterior tibial 1/4. Capillary refill time within normal limits to digits X5 bilateral foot. Edema present mildly to the left foot. Neuro: Gross sensation intact to bilateral lower extremity. Pinpoint sensation intact. No hyperalgesia noted to bilateral lower extremity Dermatology: Normal temperature and turgor to bilateral lower extremity. No fluctuance or crepitus noted to left foot. Dorsal hallux ulceration noted with no ingrowing nail/paronychia. Blister noted to first interspace with callus formation, tenderness on palpation. Musculoskeletal: Tender to palpation to left hallux ulceration and first interspace. Assessment and Plan - Plan 52 year old female with left foot infection Patient examined and evaluated with all questions answered Nursing wound care orders to be place Apply betadine and DSD to hallux and first interspace MRI left foot to r/o abscess formation
[2017-12-01] MEDS: Senna/Docusate Sodium 8.6/50 MG Tablet PO SCH (22:28)
[2017-12-02] MEDS: QUEtiapine 100 MG Tablet PO SCH ×2 (09:58→21:22)
[2017-12-02] MEDS: Senna/Docusate Sodium 8.6/50 MG Tablet PO SCH ×2 (09:58→21:22)
[2017-12-02] MEDS: Lactic Acid (Ammonium Lactate) 12% Lotion 225 GM Bottle TOPICAL SCH ×2 (11:03→21:22)
[2017-12-02] MEDS ORDERED: Gadobutrol PF 7.5 MMOL/7.5 ML Vial (for RAD) IV.SIG ONE (11:40)
--- NOTE | 2017-12-02 11:44 | P.PN ---
Subjective Interval history: Patient is seen sitting in room. Continues to complain about left foot pain. Denies any fever or chills. Denies any new or different swelling in the foot or leg. Denies any nausea vomiting or diarrhea. Reports that she is eating well with normal urination and bowel movements. Physical Exam Vital signs: Vital Signs 12/01/17 17:40 12/01/17 20:00 12/02/17 06:00 Temperature 97.5 F L 97.5 F L Pulse Rate 80 69 Respiratory Rate 16 16 Blood Pressure 126/72 107/62 Pulse Oximetry 97 96 Narrative: GENERAL: Well-nourished, well-developed adult female in no obvious distress. SKIN: Warm and dry. No obvious cellulitis. No obvious abscess or fluctuance in left foot. Existing blister between the first and second toe is dressed with gauze and draining serous fluid. Both feet are well perfused. HEAD: Atraumatic. Normocephalic. CARDIOVASCULAR: Regular rate and rhythm. RESPIRATORY: No accessory muscle use. Clear to auscultation. Breath sounds equal bilaterally. GASTROINTESTINAL: Abdomen soft, non-tender, non-distended. Positive bowel sounds. MUSCULOSKELETAL: Extremities without clubbing, cyanosis, or edema. No obvious deformities. NEUROLOGICAL: Awake and alert. No obvious cranial nerve deficits. Motor grossly within normal limits. Normal speech. Results - Labs CBC & Chem 7: 11/29/17 11:28 11/30/17 08:50 Assessment and Plan - Plan 52-year-old white female admitted with Carrillo act for suicidality. Hospitalist consulted for foot pain management. Paronychia with abscess Foot pain -Callus and blister formation due to prolonged foot wear or lack of footwear. -Increase pain, bulla with serous fluid; possibly abscess. - Started Dicloxacillin P.O. 12/01 -consult podiatry for possible I&D, appreciate assistance. -MRI requested by podiatry; ordered 12/02 - NSAIDS as needed for pain Sunburn -calamine lotion as needed Mood disorders -Psychiatry managing DVT prophylaxis-ambulation Discussed Condition With: Discussed with patient and RN
--- NOTE | 2017-12-02 12:16 | MR ---
EXAM DATE: 12/02/2017 11:58 AM EDT AGE/SEX: 52 years / Female INDICATIONS: Osteomyelitis. Wound great toe left foot. CLINICAL DATA: This is the patient's initial encounter. Patient reports that signs and symptoms have been present for 3 days and indicates a pain score of 4/10. MEDICAL/SURGICAL HISTORY: None. section. Hysterectomy. COMPARISON: C, FOOT COMPLETE LEFT 3V, 11/30/2017. . TECHNIQUE: Multiplanar, multisequence MRI examination was performed without contrast and after th e intravenous administration of 7 ml Gadavist (gadobutrol) single exam dose. FINDINGS: Bones: The osseous structures are in normal alignment. No evidence of fracture or bony edema. There are no obvious erosions present. Joint Spaces: No joint effusion or loose bodies are seen. The joint spaces are preserved. Tendons: The flexor tendons are intact. Soft Tissues: Mild soft tissue swelling within the subcutaneous fat. Other: The plantar fascia is intact. No signal abnormalities are seen in the plantar musculature. Post Contrast: There are no abnormal areas of enhancement in the marrow, muscle or soft tissues on im ages obtained after intravenous administration of gadolinium. CONCLUSION: 1. No evidence of osteomyelitis. 2. Mild soft tissue swelling at the toes. Electronically signed by: Kiran Guerra MD 12/02/2017 12:14 PM EDT
--- NOTE | 2017-12-02 13:39 | P.PNPOD ---
Subjective Interval history: MRI reviewed. No abscess identified. Continue with betadine and DSD x3 days then switch to Silvadene and DSD. Will place nursing orders. Please reconsult as needed. Physical Exam Vital signs: Vital Signs 12/01/17 17:40 12/01/17 20:00 12/02/17 06:00 Temperature 97.5 F L 97.5 F L Pulse Rate 80 69 Respiratory Rate 16 16 Blood Pressure 126/72 107/62 Pulse Oximetry 97 96 Medications and Allergies Active Medications: Active Medications Al Hydrox/Mg Hydrox/Simethicone (Mag-Al Plus Susp Liq) 30 ml PO Q6H PRN PRN Reason: DYSPEPSIA Al Hydroxide/Mg Hydroxide (Milk Of Magnesia Liq) 30 ml PO Q12H PRN PRN Reason: Mild Constipation Bisacodyl (Dulcolax Supp) 10 mg RECTAL DAILY PRN PRN Reason: SEVERE CONSITIPATION Calamine (Calamine Lotion) 1 applicatio TOPICAL Q6H PRN PRN Reason: itching or pain over areas Last Admin: 11/30/17 20:43 Dose: 1 applicatio Dicloxacillin Sodium (Dynapen) 250 mg PO Q6HR [facility] Last Admin: 12/02/17 06:34 Dose: 250 mg Diphenhydramine HCl (Benadryl) 50 mg PO HS PRN PRN Reason: INSOMNIA Last Admin: 12/01/17 20:51 Dose: 50 mg Lactic Acid (Lac-Hydrin 12% Lotion) 1 applicatio TOPICAL BID [facility] Last Admin: 12/02/17 11:03 Dose: Not Given Lactulose (Lactulose Liq) 30 ml PO DAILY PRN PRN Reason: SEVERE CONSITIPATION Lorazepam (Ativan) 1 mg PO Q6H PRN PRN Reason: MODERATE TO SEVERE ANXIETY Last Admin: 12/01/17 18:06 Dose: 1 mg Naproxen (Naprosyn) 500 mg PO BID PRN PRN Reason: Acute Pain Last Admin: 12/01/17 20:56 Dose: 500 mg Padimate O (Chapstick) 1 applicatio TOPICAL Q4H [facility] Last Admin: 12/02/17 11:03 Dose: 1 applicatio Quetiapine Fumarate (Seroquel) 100 mg PO BID [facility] Last Admin: 12/02/17 09:58 Dose: 100 mg Senna/Docusate Sodium (Rosamaria-Colace) 1 tab PO BID [facility] Last Admin: 12/02/17 09:58 Dose: 1 tab Sennosides (Senokot) 17.2 mg PO Q12H PRN PRN Reason: Moderate Constipation Ziprasidone (Geodon Inj) 10 mg IM Q12H PRN PRN Reason: SEVERE AGITATION Allergies Allergy/AdvReac Type Severity Reaction Status Date / Time aspirin Allergy Hives Verified 11/25/17 12:46 propoxyphene Allergy Itching Verified 11/25/17 12:46 [From Rosa] Home Medications Medication Instructions Recorded Confirmed Type No Known Home Medications 11/29/17 11/29/17 History Results - Labs CBC & Chem 7: 11/29/17 11:28 11/30/17 08:50 - Imaging Impressions Foot MRI 12/02/17 00:00 CONCLUSION: 1. No evidence of osteomyelitis. 2. Mild soft tissue swelling at the toes.
--- NOTE | 2017-12-02 15:55 | P.PNPSY ---
Subjective Remarks: Patient seen in her room with nurse, chart reviewed, patient compliant medications. Patient focusing on the pain in her foot wanting relief from that. She denies suicidality homicidality voice or visions. States she wishes to return to [place] when discharged from here. At this time continue medication consider discharge tomorrow with Counselor helping her to provide transportation back home Review of Systems All other systems reviewed negative except as stated in HPI Mental Status Examination Appearance: Disheveled, Other (sunburned) Consciousness: Alert Orientation: x4 Motor Activity: Other (walks with a limp) Speech: Pressured, Rapid Language: Adequate Fund of Knowledge: Adequate Attention and Concentration: Inadequate Memory: Unremarkable Mood: Angry, Anxious, Irritable, Manic Affect: Other (Decreased range and intensity) Thought Process & Associations: Disorganized, Tangential Thought Content: Racing thoughts, Delusional Hallucination Type: None Delusion Type: Paranoid Suicidal Ideation: Yes (In context of current homelessness) Suicidal Plan: Yes (to blow her brains out) Suicidal Intention: No Homicidal Ideation: No Homicidal Plan: No Homicidal Intention: No Insight: Poor Judgment: Poor Assessment and Plan - Assessment (1) PTSD (post-traumatic stress disorder) Code(s): F43.10 - Post-traumatic stress disorder, unspecified Status: Acute (2) Bipolar disorder Code(s): F31.9 - Bipolar disorder, unspecified Status: Acute - Plan Plan: Patient's mood appears to be improving she denies suicidality homicidality voice or visions. Focusing the injuries to her feet. For now continue treatment Justification for Continued Inpatient Stay: At this time patient would decompensate a place to a lower level of care Discharge Planning: Possible discharge tomorrow (2) Bipolar disorder Qualifiers: Active/Remission status: currently active Current bipolar episode type: manic Current episode severity: severe Psychotic features: with psychotic features Qualified Code(s): F31.2 - Bipolar disorder, current episode manic severe with psychotic features
[2017-12-02] MEDS: Naproxen 500 MG Tablet PO PRN (23:37)
[2017-12-03] MEDS: Lactic Acid (Ammonium Lactate) 12% Lotion 225 GM Bottle TOPICAL SCH ×3 (09:35→21:27)
[2017-12-03] MEDS: QUEtiapine 100 MG Tablet PO SCH ×3 (09:36→21:27)
[2017-12-03] MEDS: Senna/Docusate Sodium 8.6/50 MG Tablet PO SCH ×3 (09:36→21:27)
--- NOTE | 2017-12-03 10:12 | P.PN ---
Subjective Interval history: Patient is seen lying comfortably in bed. She tells me that her foot feels a lot better and she is now able to move around without pain. Denies any fever or chills. Denies any shortness of breath or chest pain. No nausea vomiting or diarrhea; is tolerating her meals well. Reports normal bowel movements and urination. Physical Exam Vital signs: Vital Signs 12/02/17 17:52 12/02/17 20:39 12/03/17 06:52 Temperature 97.7 F 97.4 F L Pulse Rate 70 57 L Respiratory Rate 16 16 14 Blood Pressure 124/64 135/60 Pulse Oximetry 97 98 Narrative: GENERAL: Well-nourished, well-developed adult female in no obvious distress. SKIN: Warm and dry. No obvious cellulitis. No obvious abscess or fluctuance in left foot. Existing blister between the first and second toe is dressed with gauze; no drainage noted. Both feet are well perfused. HEAD: Atraumatic. Normocephalic. CARDIOVASCULAR: Regular rate and rhythm. RESPIRATORY: No accessory muscle use. Clear to auscultation. Breath sounds equal bilaterally. GASTROINTESTINAL: Abdomen soft, non-tender, non-distended. Positive bowel sounds. MUSCULOSKELETAL: Extremities without clubbing, cyanosis, or edema. No obvious deformities. NEUROLOGICAL: Awake and alert. No obvious cranial nerve deficits. Motor grossly within normal limits. Normal speech. Results - Labs CBC & Chem 7: 11/29/17 11:28 11/30/17 08:50 - Imaging Impressions Foot MRI 12/02/17 00:00 CONCLUSION: 1. No evidence of osteomyelitis. 2. Mild soft tissue swelling at the toes. Assessment and Plan - Plan 52-year-old white female admitted with Carrillo act for suicidality. Hospitalist consulted for foot pain management. Paronychia with abscess Foot pain -Callus and blister formation due to prolonged foot wear or lack of footwear. -Increase pain, bulla with serous fluid; possibly abscess. -Started Dicloxacillin P.O. 12/01 -consult podiatry for possible I&D, appreciate assistance. I&D not indicated. Podiatry has signed off as of 12/02. -MRI requested by podiatry; ordered 12/02 -no indication of abscess or osteomyelitis. -NSAIDS as needed for pain Sunburn -calamine lotion as needed Mood disorders -Psychiatry managing DVT prophylaxis-ambulation Discussed Condition With: Discussed with patient and RN
--- NOTE | 2017-12-03 13:54 | P.PNPSY ---
Subjective Remarks: Patient seen in her room with RN chart reviewed. Patient discussed with the RN. It appears patient is more irritable today earlier today she refused her medication think she does not need it anymore. Patient seen by me today with RN patient and her room laying in bed. Patient angry irritable showing marked increased paranoia and vigilance now denying need for medication denying suicidality or homicidality when asked about mental health issues she stated that she had a doctor in [place] told her she did not need medication anymore. She states she has money that she can get a hotel. However upon review of documentation at this admission for the patient is cycling to perhaps an increase psychotic manic episode and I question her ability to maintain herself in the community. Patient is scheduled for [facility] tomorrow I will present patient to [facility] tomorrow with recommendations that she be retained involuntary basis to treat her mental illness. There is documentation that patient is a long mental health history with noncompliance medication multiple admissions out of state Review of Systems All other systems reviewed negative except as stated in HPI Mental Status Examination Appearance: Disheveled, Other (sunburned) Consciousness: Alert Orientation: x4 Motor Activity: Other (walks with a limp) Speech: Pressured, Rapid Language: Adequate Fund of Knowledge: Adequate Attention and Concentration: Inadequate Memory: Unremarkable Mood: Angry, Anxious, Irritable, Manic Affect: Other (Decreased range and intensity) Thought Process & Associations: Disorganized, Tangential Thought Content: Racing thoughts, Delusional Hallucination Type: None Delusion Type: Paranoid Suicidal Ideation: Yes (In context of current homelessness) Suicidal Plan: Yes (to blow her brains out) Suicidal Intention: No Homicidal Ideation: No Homicidal Plan: No Homicidal Intention: No Insight: Poor Judgment: Poor Assessment and Plan - Assessment (1) PTSD (post-traumatic stress disorder) Code(s): F43.10 - Post-traumatic stress disorder, unspecified Status: Acute (2) Bipolar disorder Code(s): F31.9 - Bipolar disorder, unspecified Status: Acute - Plan Plan: Patient showing increased signs of paranoia irish and psychosis. No noncompliant with medications. Patient scheduled for [facility] tomorrow we will discuss this in that venue Justification for Continued Inpatient Stay: At this time patient would decompensate a place to a lower level of care Discharge Planning: To be determined (2) Bipolar disorder Qualifiers: Active/Remission status: currently active Current bipolar episode type: manic Current episode severity: severe Psychotic features: with psychotic features Qualified Code(s): F31.2 - Bipolar disorder, current episode manic severe with psychotic features
[2017-12-04] MEDS: Senna/Docusate Sodium 8.6/50 MG Tablet PO SCH ×2 (09:25→20:58)
[2017-12-04] MEDS: Lactic Acid (Ammonium Lactate) 12% Lotion 225 GM Bottle TOPICAL SCH ×2 (09:25→20:59)
[2017-12-04] MEDS: QUEtiapine 100 MG Tablet PO SCH ×2 (09:25→20:58)
--- NOTE | 2017-12-04 16:31 | P.PNPSY ---
Subjective Remarks: Patient seen in [facility], patient retained by Wild Silvestre for the purpose of assisting her in returning to [place]. Patient performed quite well in the court. Patient denies suicidality homicidality voices or visions. She will does not wish to be on medication. But does have some insight into getting a second opinion back home related to her need for medication. Less we will discharge patient tomorrow will help arrange transportation for to go towards the car and found to get her possessions and then getting set up with a bus ticket back from [place]. The B no Rx by me. Review of Systems All other systems reviewed negative except as stated in HPI Mental Status Examination Appearance: Other (sunburned) Consciousness: Alert Orientation: x4 Motor Activity: Normal gait Speech: Pressured (Slower), Rapid (Slower) Language: Adequate Fund of Knowledge: Adequate Attention and Concentration: Adequate Memory: Unremarkable Mood: Manic Affect: Other (Decreased range and intensity) Thought Process & Associations: Disorganized (More organized) Thought Content: Racing thoughts (Decreased), Delusional (Decreased) Hallucination Type: None Delusion Type: Paranoid Suicidal Ideation: No (In context of current homelessness) Suicidal Plan: No (to blow her brains out) Suicidal Intention: No Homicidal Ideation: No Homicidal Plan: No Homicidal Intention: No Insight: Fair Judgment: Impulsive Assessment and Plan - Assessment (1) PTSD (post-traumatic stress disorder) Code(s): F43.10 - Post-traumatic stress disorder, unspecified Status: Acute (2) Bipolar disorder Code(s): F31.9 - Bipolar disorder, unspecified Status: Acute - Plan Plan: Patient seen in [facility] was retained for a brief period of time to help set up transportation back to [place]. Patient is showing some slight increase into her need to get a second opinion back home related to her need for maintenance medication. She denies suicidality homicidality voices or visions Justification for Continued Inpatient Stay: At this time patient would decompensate if not placed in appropriate level of care Discharge Planning: Patient to be discharged tomorrow with arrangements made for her to return to [place] by Kami (2) Bipolar disorder Qualifiers: Active/Remission status: currently active Current bipolar episode type: manic Current episode severity: severe Psychotic features: with psychotic features Qualified Code(s): F31.2 - Bipolar disorder, current episode manic severe with psychotic features
[2017-12-04 18:02] VITALS: BP 132/77; PULSE 62; RESP 18; TEMP 97.4; O2SAT 100
[2017-12-05] MEDS: Senna/Docusate Sodium 8.6/50 MG Tablet PO SCH (09:39)
[2017-12-05] MEDS: Lactic Acid (Ammonium Lactate) 12% Lotion 225 GM Bottle TOPICAL SCH (09:39)
[2017-12-05] MEDS: QUEtiapine 100 MG Tablet PO SCH (09:39)
--- NOTE | 2017-12-05 11:55 | P.DSPSY ---
Psychiatry Discharge Summary Inpatient Psychiatric care?: Yes Advance Directives: No Mental Health Advance Directive: No Health Care Proxy: No - Admission Admission Date: November 29, 2017 18:02 - Admission Diagnosis (1) Bipolar disorder Code(s): F31.9 - Bipolar disorder, unspecified Brief History: The patient is a 52-year-old woman, domiciled in [place], here in [facility] "on vacation", single, she is mother of 2 kids, unemployed, supported by [facility], with a psychiatric history of PTSD, depression, anxiety, bipolar disorder, multiple psychiatric admissions, noncompliant with medications, she denies the use of illegal drugs or alcohol, medical history of fibromyalgia, who presented to emergency department under Carrillo act by PD. The BA alleges that they responded to a call " for a female that did not know who she was, why she was there or where she came from. She reported she had been walking around for 24 hours and that she had come down from [place] after the of her mother. She then stated that she would blow her brains out." The patient was just seen in the ER earlier this past week for PTSD and anxiety and requesting a medication refill. She reports to ED provider that her car is disabled in parking lot at [employer]. The patient has been trespassed from [employer] after she had been staying in their parking lot x 3 days. Current toxicology is negative. EMR reviewed. ollateral information from his daughter Eri at [phone] was obtained by Yoon Perez), She informs me that the patient has an extensive psychiatric history including multiple hospitalizations.Has been prescribed Geodon, Seroquel inthe past but that she stopped taking medications approximately one year ago. She last saw her in October. She was recently contacted by [employer] in [place] who were looking for her " to commit her to the hospital because someone reported she was seen involved in some strange activity with an animal. The daughter did not want to divulge what this was. She also tells me that the patient got rid of all her possessions in her apartment before disappearing. As per Miss Tse assessment yesterday in the ER. Patient is seen. She is sunburned and complaining of pain in her feet from walking. her speech is pressured. Mood is irritable. She tells me she left her apartment because she believed that there were cameras in her apartment and when she called the police they did not help her. She then embarked on a random, unplanned trip to [facility] in [place]. She then decided to drive to [place] to stay with a brother but somehow ended up stranded in the [employer] parking lot. She continues to endorse thoughts of self harm if she is discharged. Her thoughts are somewhat tangential and circumstantial. Does not appear to be responding to internal stimuli. Poor frustration tolerance noted.She becomes easily agitated and terminates the interview. Today on my psychiatric evaluation I find a patient that is irritable, oppositional, quite reluctant to cooperate with psychiatric information. With redirection the patient was able to open up a little bit. The patient is quite disheveled, malodorous, with clear evidence of self neglecting behavior. She initially started complaining of pain several sunburns injuries over her back. Also complains of pain in both food, in the left leg she has a prominent about 2x2 abscess was surrounded area of inflammation. She says that she can barely walk. The patient tried to explain what were the circumstances that brought her yesterday to the ER. She initially says that she was trying to fix her car in the parking lot [employer], she says that she did not have any gas was trying to ask for help when she became aware that the police was behind her and she was brought to the hospital. She also states that some point she was in a gas station," and the people in the gas station called the police to bring him here " she says that she has being in the [facility] area complication, but at the same time she is unable to tell me where she is being staying and also for how long she has been here. During the evaluation I noted that the patient is quite contradictory, disorganized, tangential, with ruslan loosening of associations and even pressure. The patient seems to be internally preoccupied and also paranoid. At the beginning she says that she does not have any psychiatric history, but when I confronted her with her daughter's information, the patient was able to tell me that she does have bipolar disorder she has not been taking her medications. She at the end agree with starting Seroquel Tobacco Use In Past 30 Days: Yes How Often Do You Have a Drink Containing Alcohol: Never Hospital Course: Patient's hospital course was overall uneventful, her paranoia and psychosis and manic behavior did soften somewhat though there is still periods when she show some rapid pressured speech but the vigilance and the paranoia diminished. Patient was seen in [facility] yesterday was retained by Wild Silvestre only for the purpose of setting up transportation for her to return to [place]. Patient seen today she is alert oriented calm cooperative denying suicidality homicidality voice or visions. Is excited about her discharge we have made arrangements today to get patient to wear her car is impounded for her to get her clothing and then arrangements for her to take a [employer] bus to [place]. Patient is to follow-up with mental health in that community - Discharge Discharge Date: 12/05/17 - Discharge Diagnosis (1) Bipolar disorder Diagnosis: Principal Code(s): F31.9 - Bipolar disorder, unspecified Status: Acute Discharge Disposition: Home - Discharge Instructions Discharge Diet: Regular Diet Activities You Can Perform: Regular- No Restrictions - Discharge Time > 30 minutes Mental Status Examination Appearance: Other (sunburned) Consciousness: Alert Orientation: x4 Motor Activity: Normal gait Speech: Pressured (Slower), Rapid (Slower) Language: Adequate Fund of Knowledge: Adequate Attention and Concentration: Adequate Memory: Unremarkable Mood: Manic Affect: Other (Decreased range and intensity) Thought Process & Associations: Disorganized (More organized) Thought Content: Racing thoughts (Decreased), Delusional (Decreased) Hallucination Type: None Delusion Type: Paranoid Suicidal Ideation: No (In context of current homelessness) Suicidal Plan: No (to blow her brains out) Suicidal Intention: No Homicidal Ideation: No Homicidal Plan: No Homicidal Intention: No Insight: Fair Judgment: Impulsive Discharge/Advance Care Plan - Results Vital Signs: Last Vital Signs Temp 97.4 F L 12/04/17 18:01 Pulse 62 12/04/17 18:01 Resp 18 12/04/17 18:01 BP 132/77 12/04/17 18:01 Pulse Ox 100 12/04/17 18:01 Lab Results: Laboratory Results Hemoglobin A1c 5.2 % (4.3-6.0) 11/30/17 08:50 Triglycerides 81 mg/dL (42-150) 11/30/17 08:50 Cholesterol 146 mg/dL (120-200) 11/30/17 08:50 LDL Cholesterol, Calc 87 mg/dL (0-99) 11/30/17 08:50 HDL Cholesterol 43.2 mg/dL (40.0-60.0) 11/30/17 08:50 TSH 1.600 uIU/mL (0.358-3.740) 11/29/17 11:28 Summary of Procedures: None done Imaging: ITS Impressions Foot X-Ray 11/30/17 00:00 CONCLUSION: Unremarkable study. Venous Doppler Study 11/30/17 00:00 CONCLUSION: 1. The study is negative for bilateral lower extremity deep venous thrombosis. Foot MRI 12/02/17 00:00 CONCLUSION: 1. No evidence of osteomyelitis. 2. Mild soft tissue swelling at the toes. Pending Results: None - Medications Number of antipsychotic medications at discharge: 0 - Discharge Care Plan Goals to Promote Your Health: * To prevent worsening of your condition and complications * To maintain your health at the optimal level Directions to Meet Your Goals: Take your medications as prescribed Follow your dietary instruction Follow activity as directed Keep your appointments as scheduled Take your immunizations and boosters as scheduled If your symptoms worsen call your PCP, if no PCP go to Urgent Care Center or Emergency Room For 25/11 questions related to your inpatient stay or results of tests pending at discharge, please contact Dr. Kiran Sifuentes MD at Smoking is Dangerous to Your Health. Avoid second hand smoking (1) Bipolar disorder Qualifiers: Active/Remission status: currently active Current bipolar episode type: manic Current episode severity: severe Psychotic features: with psychotic features Qualified Code(s): F31.2 - Bipolar disorder, current episode manic severe with psychotic features (1) Bipolar disorder Qualifiers: Active/Remission status: currently active Current bipolar episode type: manic Current episode severity: severe Psychotic features: with psychotic features Qualified Code(s): F31.2 - Bipolar disorder, current episode manic severe with psychotic features
== END 2017-12-05 14:30 | disposition home or self-care (01) ==
LOC: NEPJ 11:05 → NEDA 18:02 → H260 20:57
PROVIDERS: ADMIT Psychiatry & Neurology Psychiatry; ATTEND Psychiatry & Neurology Psychiatry